=== PATIENT | female | born 1990 | race Caucasian/White ===

== ENCOUNTER 2017-02-23 23:25 | Inpatient (IN) | payer OTHER ==
[~2017-02-23] VITALS: Ht 170.2 cm; Wt 76.0 kg
[2017-02-23 23:29] VITALS: BP 114/73; PULSE 120; RESP 20; O2SAT 94
[2017-02-24] VITALS (9 sets, daily range): BP systolic 83–115; BP diastolic 44–74; PULSE 68–98; RESP 16–17; O2SAT 93–100
--- NOTE | 2017-02-24 00:01 | ED.REPORT ---
HPI-General Illness Date of Service Feb 24, 2017 ED Provider: Jarocho Mitchell MD Pt is a 27 y/o female who is 8 months and presenting to the ED c/o right breast pain, redness, and swelling, onset yesterday night. She c/o associated fever, chills, and nausea. She denies vomiting, SOB, abdominal pain. She has no history of mastitis. Nursing Notes Stated Complaint: BREAST PAIN Chief Complaint: General Complaint Nursing Notes Reviewed: Yes Allergies: Coded Allergies: No Known Allergies (Unverified , 02/23/17) General Time Seen by MD: 23:59 Chief Complaint Other (R breast infection) Hx Obtained From: Patient Arrived By: Walk-in Sudden in Onset?: No Onset Occurred: Yesterday Symptom Duration: Since onset Location: : Chest (r breast) Quality: Painful Severity: Current: Moderate Severity: Maximum: Moderate Recent Healthcare: No recent doctor visit, No recent hospitalization Similar Sx Previous: No Past Medical History Past Medical History Denies Past Surgical History Denies Smoking History Never Smoker Social History Alcohol Use: Denies alcohol use Drug Use: Denies drug use Ambulatory Status Independent Review of Systems Full Review of Systems Constitutional: Reports: Chills, Fever Respiratory: Denies: Non-productive cough, Shortness of breath Cardiovascular: Denies: Chest pain, Dyspnea on exertion GI: Reports: Nausea, Denies: Abdominal pain, Vomiting Skin: Reports Rash, Reports Swelling Complete sys rev & neg: except as marked. Physical Exam Vital Signs Vital Signs Date Time Temp Pulse Resp B/P Pulse Ox O2 Delivery O2 Flow Rate FiO2 02/24/17 01:58 82 94/54 02/24/17 01:51 37.0 98 16 83/44 96 Room Air 02/24/17 01:17 37.1 94 16 92/44 94 Room Air 02/24/17 00:51 38.1 90 16 108/62 93 Room Air 02/23/17 23:29 39.4 120 20 114/73 94 Room Air Initial VS: Reviewed, Vital signs abnormal Head / Eyes: Atraumatic, Normocephalic, PERRL ENT: Mucous membranes moist, Conjunctiva normal, No scleral icterus Neck: Supple, Full range of motion Extremities: Vascular intact, Neuro intact, No swelling Skin: Warm, Dry, No cyanosis Neurologic: Alert, Oriented, Nonfocal Psychiatric: Mood/affect normal, Behavior normal, Normal thought content General/Constitutional: Awake, Alert, No acute distress, Cooperative, Not toxic appearing Appearance / Presentation: Positive: Ill appearing/not toxic Respiratory / Chest: Atraumatic, Breath sounds NL, Breath sounds = bilat, No respiratory distress, No rales, No rhonchi, No wheezing, No retractions Palm sized patch of erythema and mild induration about the right lateral breast. Warmth present Tender to touch No purulent discharge from nipple Cardiovascular: Regular rhythm, Heart sounds NL, No gallop, No murmurs, No rubs Heart Rate / Rhythm: Positive: Tachycardia Interpretation & Diagnostics Lab Results Interpretation Result Diagram: 02/24/17 0000 02/24/17 0000 Test 02/24/17 00:00 White Blood Count 10.9th/mm3 (3.8-10.1) Red Blood Count 4.54mil/mm3 (3.90-5.20) Hemoglobin 13.0g/dL (12.0-15.6) Hematocrit 39.3% (35.0-46.0) Mean Corpuscular Volume 86.6fL (81-100) Mean Corpuscular Hemoglobin 28.6pg (27.0-35.0) Mean Corpuscular Hemoglobin Concent 33.1% (32.0-37.0) Red Cell Distribution Width 14.2% (12.3-15.4) Platelet Count 229bil/L (150-400) Neutrophils (%) (Auto) 76.0% (40-74) Lymphocytes (%) (Auto) 15.0% (14-46) Monocytes (%) (Auto) 8.0% (4-12) Eosinophils (%) (Auto) 0.6% (0-5) Basophils (%) (Auto) 0.2% (0-3) Hold Purple Top Tube Received (Received) Hold Blue Top Tube Received (Received) Sodium Level 136mEq/L (134-144) Potassium Level 3.7mEq/L (3.5-5.2) Chloride Level 99mEq/L (97-108) Carbon Dioxide Level 23mmol/L (18-29) Blood Urea Nitrogen 11mg/dL (6-20) Creatinine 0.68mg/dL (0.57-1.00) Estimat Glomerular Filtration Rate 147mL/min (>59) Glucose Level 119mg/dL (60-99) Lactic Acid Level 0.8mmol/L (0.4-2.0) Calcium Level 9.3mg/dL (8.5-10.1) Total Bilirubin 1.5mg/dL (0.0-1.2) Aspartate Amino Transf (AST/SGOT) 94U/L (0-50) Alanine Aminotransferase (ALT/SGPT) 104U/L (0-32) Alkaline Phosphatase 65U/L (25-150) Total Protein 7.8g/dL (6.4-8.4) Albumin 4.3g/dL (3.4-5.0) Hold Red Top Tube Received (Received) Hold [place] Top Tube Received (Received) Hold [place] Top Tube Received (Received) Re-Eval/Medical Decision Med Decision/Clinical Course Pt is a 27 y/o female who is 8 months and presenting to the ED c/o right breast pain, redness, and swelling, onset yesterday night. She c/o associated fever, chills, and nausea. She denies vomiting, SOB, abdominal pain. She has no history of mastitis. In the emergency department the patient is tachycardic with a heart rate of 125 and febrile with a temperature of 39. Despite her concerning vital signs she is generally well-appearing and nontoxic in appearance. Meds given: 450 mg IV Clindamycin, 30 mg Toradol Labs notable as below: CBC: Borderline leukocytosis of 10.9 otherwise unremarkable CMP: Total bili of 1.5, mildly elevated transaminases with AST of 94 and ALT of 104 Lactic acid 0.8 Patient's consistent with mastitis. My initial hope was to discharge this patient home however despite treatment with 3 L of normal saline and IV antibiotics her blood pressure down trended into the 80s over the 50s. She did respond to IV fluids and maintained a MAP >65. Not feel that immediate initiation of vasopressors as indicated however I am not comfortable discharging the patient at this moment as she meets SIRS criteria with a probable source of infection. The patient was discussed with the admitting hospitalist and transferred for further management with IV antibiotics. She was transferred in stable condition. Time of Eval: 01:59 Re-Evaluation/Progress Note: Pt rechecked. Discussed hypotension and plan for admission vs discharge. Informed pt of need for admission. She would like to breastfeed her baby on the floor if possible. Pt understands and agrees with plan for admission. All questions addressed. Counseled Regarding: Diagnosis, Lab results, Need for admission Discharge & Departure Primary Impression: Sepsis Sepsis type: sepsis due to unspecified organism Qualified Code: A41.9 - Sepsis, unspecified organism Additional Impressions: Acute mastitis of right breast Hypotension Hypotension type: unspecified hypotension type Qualified Code: I95.9 - Hypotension, unspecified Tachycardia Fever Fever type: unspecified Qualified Code: R50.9 - Fever, unspecified Disposition: ADMITTED TO HOSPITAL Discharge Condition All VS Reviewed: Yes Condition: Stable Referrals: Cherie Lam MD (PCP) Crit Care Except Billable Proc Time Spent: 75-104 minutes Services Performed: Patient management by me, Time spent at bedside, Reviewing test results, Reviewing imaging, Discussing patient care, Documentation in record, Time with fam/surrogate Scribe Attestation Portions of this note were transcribed by Luis Daniel Wills. I, Dr. Mitchell personally performed the history, physical exam and medical decision-making; I reviewed and confirmed the accuracy of the information in the transcribed note. Signed by Jayy Rosario, 02/24/17 - 0045 copies to: Cherie Lam MD, Beck O MD Feb 24, 2017 00:01 LUIS DANIEL WILLS Feb 24, 2017 00:37
[2017-02-24] MEDS ORDERED: 0.9% Sodium Chloride 1,000 ML IV ONE ×3 (00:05→02:00)
[2017-02-24 00:30] LABS: BASOPHILS % (AUTO) 0.2 % (0-3); EOSINOPHILS % (AUTO) 0.6 % (0-5); Mean Corpuscular Hemoglobin 28.6 pg (27.0-35.0); Mean Corpuscular Volume 86.6 fL (81-100); Platelet Count 229 bil/L (150-400)
[2017-02-24] MEDS ORDERED: CLINDAMYCIN IV ONE (00:35)
[2017-02-24] MEDS ORDERED: DEXTROSE 5% IV ONE (00:35)
[2017-02-24] MEDS ORDERED: Ondansetron 2 mg/mL 2 mL Inj IVPUSH PRN ×2 (02:05→03:15)
[2017-02-24] MEDS ORDERED: Alum-Mag Hydrox-Simeth 30 mL Suspension PO PRN ×2 (02:05→03:15)
[2017-02-24] MEDS ORDERED: 0.9% Sodium Chloride 1,000 ML IV SCH (03:11)
[2017-02-24] MEDS ORDERED: Polyethylene Glycol (PEG) 17 Gm Powder PO PRN (03:15)
--- NOTE | 2017-02-24 03:47 | PCM.HPMED ---
Subjective Date of Service Feb 24, 2017 Primary Provider: Admitting Physician: Dwayne Chen MD Primary Care Physician: Cherie Lam MD Attending Physician: Dwayne Chen MD Chief Complaint: Right breast pain History of Present Illness: Martha Fortune is a pleasant 27-year-old woman otherwise healthy presents to the emergency department after having worsening right breast pain since yesterday, she is currently breast-feeding her 8-month-old, who is her fourth child who she has breast-fed, has never had symptoms like this in the past. She has a little bit of lightheadedness before presentation but that has resolved after IV fluids, no nausea, vomiting, diarrhea, chest pain, shortness of breath, no other rashes throughout her body, no bloody or green discharge from her breast, denies any lesions on her child. In the emergency department she was found to be tachycardic, initial vitals 120, temperature 39.4, respiratory 20, roughly 2 hours after presentation blood pressure decreased to 92/44, was given fluids and continue decrease to 83/44. White blood cells 10.9 , neuts 76%, blood glucose 119, AST 94, ALT 104, total bili 1.5, pro calcitonin is pending, lactic acid 0.8.. He received 3 L of normal saline, ketorolac IV for pain, 975 mg by mouth for fever and pain, as well as started on clindamycin 450 mg IV. Last vital signs showed her to still have low blood pressure 94/54, NAP of 67, rate of 82. Review of Systems: A comprehensive review of systems was conducted with the patient and found to be negative except as above in the history of presenting illness. 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 Previous documentation states mother had hypertension Social History Hx Alcohol Use: No Hx Substance Use: No Hx Tobacco Use: No Smoking Status: Never Smoker Exam Vital Signs Vital Sign - Last Date Time Temp Pulse Resp B/P Pulse Ox O2 Delivery O2 Flow Rate FiO2 02/24/17 02:50 36.8 69 16 94/52 96 Room Air Intake and Output 02/23/17 02/23/17 02/24/17 Cumulative From/Thru 15:00 23:00 07:00 02/23/17 23:29 - 02/24/17 02:50 Intake Total 3000 ml 3000 ml Balance 3000 ml 3000 ml Intake IV Total 3000 ml 3000 ml Exam General: Laying in bed, no apparent distress. HEENT: Normocephalic, atraumatic, EOMI grossly, his membranes moist, neck supple without lymphadenopathy. Cardiovascular: Regular rate and rhythm, no clicks murmurs rubs, peripheral pulses 2/4 equal bilaterally Pulmonary: Clear to auscultation bilaterally, no W/R/R. Abdominal: Soft to palpation, bowel sounds present 4, no hepatosplenomegaly. Negative rebound. Extremities: No edema appreciated. No tenderness, asymmetry. Neuro: Neurologically grossly intact, strength is equal bilaterally upper and lower extremities. MSK: Gait is normal, able to move extremities on their own volition, strength 5 out of 5 equal bilaterally to upper and lower extremities Derm: Red warm annular lesion to right lateral breast, [place] not appear to be infected, no palpable lymph nodes, the area is tender. Chaperoned by Cherri Daley emergency room charge nurse Lab and Diagnostics Result Diagram: 02/24/17 0000 02/24/17 0001 Assessment & Plan 27-year-old otherwise healthy woman currently breast-feeding her 8-month-old child developed red, warm, tender right breast without any purulent discharge without blood, on evaluation became tachycardic and hypotensive necessitating 3 L IV fluid resuscitation, no pressers needed. Acute severe sepsis, present on admission, evaluation and treatment ongoing Temperature 39.4, heart rate 120, respirations 20, blood pressure 83/44, requiring 3 L IV normal saline, source right sided mastitis. Blood cultures 2 taken and pending Lactic acid 0.8 IV NS 125mL/hr. Bolus per sepsis protocol. Antibiotic treatment as below Acute right-sided mastitis, present on admission, treatment ongoing Warm, tender, red, right breast consistent with mastitis IV clindamycin 600 mg every 8 hours (may use while breast-feeding; possible risk of diarrhea based on limited human data) MRSA rapid screen Consider transfer to oral Bactrim DS twice a day ("Caution advised while breast- feeding based on theoretical hyperbilirubinemia based on drug's MOA") Encourage to continue breast feeding/pumping. Acetaminophen for pain, being mindful of transaminitis. Acute transaminitis, present on admission, evaluation ongoing Never previously elevated on any hospitalization or ER visits, available outpatient record does not contain CMP or BMP. Maybe secondary to hypo-perfusion secondary to severe sepsis as above If persistently elevated with a.m. labs consider following fluids, consider HV panel. Acute leukocytosis with left shift, present on admission, active. Most likely due to mastitis and subsequent sepsis. monitor with a.m. labs Patient admitted under inpatient status with expected length of stay > 2 midnights for severity of present symptoms, complexities of treatment plan and risk for adverse events Pain Evaluation: Adequate Pain Control GI Prophylaxis: Not indicated VTE Prophylaxis: SCDs Resuscitation Status: CPR: Attempt Resuscitation Attending Statement The patient was seen and examined together with Dr. Naik on 02/24 and I agree with the history, exam and plan as outlined in the note above. Leo Lord DO Feb 24, 2017 03:47 Dwayne Chen MD Feb 24, 2017 19:04
[2017-02-24 04:04] LABS: Phosphorus 2.8 mg/dL (2.5-4.9)
[2017-02-24] MEDS: 0.9% Sodium Chloride 1,000 ML IV SCH ×2 (04:17→11:11)
--- NOTE | 2017-02-24 06:09 | NUR ---
Admission Pt arrived to [facility] at 0250 alert and oriented x 3;she was able to ambulate from the gurney onto the bed with a steady gait. Denies dizziness and lightheadedness. Pt also denies shortness of breath, chest pain, pressure and slight discomfort to RT breast. RT breath swollen, red, and tender. Refused pain meds at this time. Pt requested a breast pump and is storing milk in the refrigerator. Pt oriented to call light, television, bed controls, lights, and bathroom. NS 125ml/hr infusing. Care ongoing.
[2017-02-24 06:35] LABS: BASOPHILS % (AUTO) 0.2 % (0-3); EOSINOPHILS % (AUTO) 2.7 % (0-5); MONOCYTES % (AUTO) 8.4 % (4-12); Mean Corpuscular Hemoglobin 28.2 pg (27.0-35.0); Mean Corpuscular Volume 88.6 fL (81-100); NEUTROPHILS % (AUTO) 64.1 % (40-74); Platelet Count 177 bil/L (150-400)
[2017-02-24] MEDS: Sodium Chloride LOK Flush 10 mL Syringe IVFLUSH SCH ×2 (08:24→16:30)
[2017-02-24] MEDS ORDERED: Clindamycin Inj 600 MG in IV Premix 1 EACH IV SCH (08:30)
[2017-02-24] MEDS ORDERED: _Clindamycin 150 mg Capsule PO SCH (08:30)
[2017-02-24 08:50] LABS: APPEARANCE,URINE CLEAR (CLEAR,HAZY); COLOR,URINE YELLOW (YELLOW); OCCULT BLOOD,URINE NEGATIVE (NEGATIVE); UROBILINOGEN,URINE NORMAL (NORMAL)
--- NOTE | 2017-02-24 12:30 | DRSVH ---
PROCEDURE: US BREAST LIMITED SONOGRAM, RIGHT INDICATIONS: tenderness on Rt breast 9 o'clock TECHNIQUE: Real-time focused scanning was performed of the right breast laterally with image documentation. COMPARISON: None. FINDINGS: An area of tenderness and redness there are inflammatory changes appear phlegmonous. No loc ulated fluid indicated abscess is seen. IMPRESSION: The appearance would be consistent with mastitis. No abscess is seen. BIRADS 2 Dictated by: Adrian Klein M.D. on 02/24/2017 at 12:28 Approved by: Adrian Klein M.D. on 02/24/2017 at 12:29
--- NOTE | 2017-02-24 14:35 | NUR ---
Pain/Mentation Pt alert and oriented. Pt described right breast as still red and tender. Heat packs provided for discomfort. She denies dizziness upon standing. using call light for needs. Gian paged as when I was getting ready to hang new NS bag she asked if she could just drink water instead. Awaiting for response from Gian Pt is pumping in room and breast milk being stored on [facility]. Her did take home a couple bags this morning. Care ongoing.
--- NOTE | 2017-02-24 19:30 | NUR ---
RN request Pt requested visit from nurse. I called to family and left message with nurse who I was told will be in tomorrow morning. I'm not sure if she will be able to help patient, but I left the message and made pt aware. I also educated pt that in regards to infection in breast that could be why she is not producing milk. Pt was worried as she had been pumping for about an hr and only had an ounce of milk out. Pt is concerned as breast is still red and enlarged. Adv she has only been on abx for less than 24 hrs and it make take some time for infection to go away. Pt understood.
[2017-02-25] MEDS: Sodium Chloride LOK Flush 10 mL Syringe IVFLUSH SCH ×2 (00:30→08:30)
[2017-02-25 04:59] VITALS: BP 126/74; PULSE 110; RESP 16; O2SAT 98
--- NOTE | 2017-02-25 06:30 | NUR ---
Pain Pt reports pain in R breast, refuses APAP due to . rooms in and has infant in his care. Breast pump in room and pt uses independently, educated to increase hydration and allow breast time to rest inbetween pumping. Pt does not want saline lock flushed as it is tender, patient refuses AM lab draws. Care continues
[2017-02-25] MEDS ORDERED: DICL250C PO (08:16)
[2017-02-25 08:21] LABS: BASOPHILS % (AUTO) 0.1 % (0-3); EOSINOPHILS % (AUTO) 6.8 % (0-5); MONOCYTES % (AUTO) 9.3 % (4-12); Mean Corpuscular Hemoglobin 28.4 pg (27.0-35.0); Mean Corpuscular Volume 88.1 fL (81-100); NEUTROPHILS % (AUTO) 57.4 % (40-74); Platelet Count 212 bil/L (150-400)
--- NOTE | 2017-02-25 10:11 | PCM.DIMED ---
Discharge Instructions Date of Service Feb 25, 2017 Dates of Hospitalization Feb 24, 2017 at 02:36 Discharge Diagnosis Discharge Diagnosis lactational mastitis mild transaminitis Medication Instructions Additional med instructions Continue to take Dicloxacillin for 8more days Diet Discharge Diet: No restrictions Activity Discharge Activity: No restrictions Call your provider Call your provider for: Fever or Chills Patient Instructions Patient Instructions You were hospitalized with mastitis, inflammation/infection in your Rt breast from Please note that you have to continue to pump your breast milk, continue to take antibiotics. Please follow up with new doctor at [facility], information was given. Follow-up Provider: [facility] Follow-up with PCP in: 2 weeks Stevie Cabrera MD Feb 25, 2017 09:32
[2017-02-25 10:18] LABS: Hepatitis A Antibody IgM Negative (Negative); Hepatitis B Core Antibody IgM Negative (Negative)
--- NOTE | 2017-02-25 11:18 | PCM.DC.MED ---
Discharge Summary Date of Service Feb 25, 2017 Dates of Hospitalization Date of Hospital Admission Feb 24, 2017 at 02:36 Date of Discharge: Feb 25, 2017 Providers: Admitting Physician: Dwayne Chen MD Primary Care Physician: Cherie Lam MD Attending Physician: Dwayne Chen MD Diagnosis at Time of Discharge Diagnosis at Time of Discharge severe sepsis due to Rt sided lactational mastitis mild transaminitis, unclear etiology Procedures Other Diagnostics PROCEDURE: US BREAST LIMITED SONOGRAM, RIGHT INDICATIONS: tenderness on Rt breast 9 o'clock TECHNIQUE: Real-time focused scanning was performed of the right breast laterally with image documentation. COMPARISON: None. FINDINGS: An area of tenderness and redness there are inflammatory changes appear phlegmonous. No loculated fluid indicated abscess is seen. IMPRESSION: The appearance would be consistent with mastitis. No abscess is seen. BIRADS 2 Dictated by: Adrian Klein M.D. on 02/24/2017 at 12:28 Approved by: Adrian Klein M.D. on 02/24/2017 at 12:29 Brief History Martha Fortune is a pleasant 27-year-old woman otherwise healthy presents to the emergency department after having worsening right breast pain since yesterday, she is currently breast-feeding her 8-month-old, who is her fourth child who she has breast-fed, has never had symptoms like this in the past. She has a little bit of lightheadedness before presentation but that has resolved after IV fluids, no nausea, vomiting, diarrhea, chest pain, shortness of breath, no other rashes throughout her body, no bloody or green discharge from her breast, denies any lesions on her child. In the emergency department she was found to be tachycardic, initial vitals 120, temperature 39.4, respiratory 20, roughly 2 hours after presentation blood pressure decreased to 92/44, was given fluids and continue decrease to 83/44. White blood cells 10.9 , neuts 76%, blood glucose 119, AST 94, ALT 104, total bili 1.5, pro calcitonin is pending, lactic acid 0.8.. He received 3 L of normal saline, ketorolac IV for pain, 975 mg by mouth for fever and pain, as well as started on clindamycin 450 mg IV. Last vital signs showed her to still have low blood pressure 94/54, NAP of 67, rate of 82. Hospital Course 27-year-old otherwise healthy woman currently breast-feeding her 8-month-old child developed red, warm, tender right breast without any purulent discharge without blood, on evaluation became tachycardic and hypotensive necessitating 3 L IV fluid resuscitation, no pressers needed. Acute severe sepsis, SIRS+Temperature 39.4, heart rate 120, respirations 20, blood pressure 83/44, requiring 3 L IV normal saline, source right sided mastitis. After initial fluid resuscitation, patient was hemodynamically stable , did not require vasopressors. Acute right-sided mastitis, patient is lactating mother, breast ultrasound showed no abscess but findings was consistent to mastitis. Patient was initially started on clindamycin. MRSA screen came back negative. Blood culture remained no growth in [address]Kindrat martinez OB, dicloxacillin 500mg qid is preferred choice. pt tolerated well and remained stable and symptomatically better. Plan is to continue dicloxacillin for total 10 days course, continue breast pumping and lactating. Patient was asked to follow-up with new PCP at [facility] for follow-up in 2 weeks Acute transaminitis, unclear etiology, resolved with IV fluid. Viral serology' s were all negative Exam Vital Signs (Last) Date Time Temp Pulse Resp B/P Pulse Ox O2 Delivery O2 Flow Rate FiO2 02/25/17 04:59 36.4 110 16 126/74 98 Room Air Exam NAD, comfortably laying down on the bed no JVD, MMM, no LAD RRR, nl s1, s2 no mrg CTAB, no w,c S,ND,NT,normoactive BS+ warm, no edema, pulses 2/2 breast: mildly tender Rt breast, no mass, fluctuance Test 02/24/17 00:00 02/24/17 00:01 02/24/17 05:55 02/24/17 08:25 Hold Purple Top Tube Received (Received) Hold Blue Top Tube Received (Received) Lactic Acid Level 0.8mmol/L (0.4-2.0) Hold Red Top Tube Received (Received) Hold [place] Top Tube Received (Received) Hold [place] Top Tube Received (Received) Phosphorus Level 2.8mg/dL (2.5-4.9) Procalcitonin 0.59ng/mL (0.00-0.08) Hepatitis A IgM Antibody Negative (Negative) Hepatitis B Surface Antigen Negative (Negative) Hepatitis B Core IgM Antibody Negative (Negative) Hepatitis C Antibody <0.1s/co ratio (0.0-0.9) Hepatitis C Comment Comment (.) Urine Color Yellow (YELLOW) Urine Appearance Clear (CLEAR,HAZY) Urine pH 6.0 (5.0-8.0) Urine Specific [place] 1.009 (1.003-1.035) Urine Protein Negativemg/dL (NEG,TRACE) Urine Glucose (UA) Negativemg/dL (NEGATIVE) Urine Ketones Tracemg/dL (NEGATIVE) Urine Occult Blood Negative (NEGATIVE) Urine Nitrite Negative (NEGATIVE) Urine Bilirubin Negative (NEGATIVE) Urine Urobilinogen Normalmg/dL (NORMAL) Urine Leukocyte Esterase Negative (NEGATIVE) Urine RBC 0-2/hpf (0-2) Urine WBC 0-5/hpf (0-5) Urine Epithelial Cells Few/hpf (NONE-MOD) Urine Crystals None seen (NONE SEEN) Urine Bacteria Few/hpf (NONE-FEW) Urine Hyaline Casts None/lpf (NONE) Urine Granular Casts None seen (NONE SEEN) Urine Waxy Casts None seen (NONE SEEN) Urine Red Blood Cell Casts None seen (NONE SEEN) Urine White Blood Cell Casts None seen (NONE SEEN) Urine Mucus None seen (None Seen) Urine Trichomonas None seen (NONE SEEN) Urine Yeast None (NONE SEEN) Urinalysis Comment None Urine Culture Reflexed Not indicated Test 02/25/17 07:56 White Blood Count 6.8th/mm3 (3.8-10.1) Red Blood Count 4.30mil/mm3 (3.90-5.20) Hemoglobin 12.2g/dL (12.0-15.6) Hematocrit 37.9% (35.0-46.0) Mean Corpuscular Volume 88.1fL (81-100) Mean Corpuscular Hemoglobin 28.4pg (27.0-35.0) Mean Corpuscular Hemoglobin Concent 32.2% (32.0-37.0) Red Cell Distribution Width 14.1% (12.3-15.4) Platelet Count 212bil/L (150-400) Neutrophils (%) (Auto) 57.4% (40-74) Lymphocytes (%) (Auto) 26.4% (14-46) Monocytes (%) (Auto) 9.3% (4-12) Eosinophils (%) (Auto) 6.8% (0-5) Basophils (%) (Auto) 0.1% (0-3) Sodium Level 145mEq/L (134-144) Potassium Level 4.0mEq/L (3.5-5.2) Chloride Level 107mEq/L (97-108) Carbon Dioxide Level 23mmol/L (18-29) Blood Urea Nitrogen 11mg/dL (6-20) Creatinine 0.49mg/dL (0.57-1.00) Estimat Glomerular Filtration Rate 214mL/min (>59) Glucose Level 93mg/dL (60-99) Calcium Level 9.4mg/dL (8.5-10.1) Total Bilirubin 1.2mg/dL (0.0-1.2) Aspartate Amino Transf (AST/SGOT) 34U/L (0-50) Alanine Aminotransferase (ALT/SGPT) 69U/L (0-32) Alkaline Phosphatase 63U/L (25-150) Total Protein 6.9g/dL (6.4-8.4) Albumin 3.9g/dL (3.4-5.0) Discharge Medications Discharge Medications Dicloxacillin (Dicloxacillin) 250 Mg Capsule 500 MG PO QID Prescribed by: STEVIE GAGNON MD Additional med instructions Continue to take Dicloxacillin for 8more days Followup Plan Disposition: home Discharge Diet: No restrictions Discharge Activity: No restrictions Patient Instructions You were hospitalized with mastitis, inflammation/infection in your Rt breast from Please note that you have to continue to pump your breast milk, continue to take antibiotics. Please follow up with new doctor at [facility], information was given. Follow-up Provider: [facility] Follow-up with PCP in: 2 weeks Time spent 65min Stevie Gagnon MD Feb 25, 2017 11:18
--- NOTE | 2017-02-25 12:25 | NUR ---
Social Work: Screening/Discharge. D: EMR reviewed. Pt is a 27 y/o female admitted for sepsis, mastitis per H&P. Pt's insurance is [employer] and PCP is May Zambrano MD. SW met with pt and spouse at bedside to conduct initial screening. Pt was alert and oriented x4. SW explained role and wrote phone number on white board. SW provided DPOA/advanced directive ppw and encouraged pt to provide a copy to the hospital when complete. Pt gave verbal consent to contact spouse ([facility] [phone]) for discharge planning. Pt states she drives and is independent at baseline. Pt lives at home with her spouse in [place]. Per MD in AM multi-disciplinary rounds, pt is to today with no SW needs. Pt's spouse confirmed he will provide pt transport home today. SW does not anticipate any discharge needs at this time but will continue to follow if needs arise. A: Pt who is independent at baseline. P: Pt's spouse confirmed he will provide pt transport home today. SW does not anticipate any discharge needs at this time but will continue to follow if needs arise.
--- NOTE | 2017-02-25 12:48 | NUR ---
Refused Lab Patient refused lab draw this morning. After talking with the patient about getting another set of labs before discharge and after education patient allowed lab to draw blood. Patient verbalizes understanding of getting another set of labs before discharge.
--- NOTE | 2017-02-25 13:05 | NUR ---
Discharge Patient discharged from unit by ambulation with and child. Belongings accompanied patient. Patient educated about discharge information and given hard copy of prescription. Instructed patient to call for a followup appointment in two weeks, continue full course of antibiotics even if she feels better, and to continue to pump/breast feed. Patient was breast feeding during the night last night and stated that it did help. Patient stated she feels much better today and that she feels healthy. IV DC'd intact.
== END 2017-02-25 13:00 | disposition home or self-care (01) | DRG 720 ==
LOC: SED 23:25 → OSC 02-24 02:36
PROVIDERS: ADMIT Hospitalist; ATTEND Hospitalist
DX: A41.9 Sepsis, unspecified organism (principal); I95.9 Hypotension, unspecified; N61.0 Mastitis without abscess; R65.20 Severe sepsis without septic shock